=== PATIENT | male | born 1955 | race Caucasian/White ===

== ENCOUNTER 2017-09-25 09:53 | Day surgery (SDC) | payer BC ==
[2017-09-25] MEDS ORDERED: PROPOFOL 10 MG/ML VIAL IV ONE (09:54)
[2017-09-25] MEDS ORDERED: LIDOCAINE 2% MDV (20MG/ML) 20ML VIAL IV ONE (09:54)
--- NOTE | 2017-09-26 13:31 | Operative Note ---
DATE OF SURGERY: 09/25/2017 OPERATION: COLONOSCOPY. PREOPERATIVE DIAGNOSIS: Screening, average risk. POSTOPERATIVE DIAGNOSES: 1. Fair prep. 2. Sigmoid diverticulosis. PROCEDURE: After informed consent was obtained from the patient, he was placed in the left lateral decubitus position in the endoscopy suite, sedated and monitored by the department of anesthesia. Digital rectal exam was unremarkable. A well-lubricated [id number] colonoscope was inserted into the rectum and advanced to the cecum. Preparation quality was fair at best. The cecum was noted by the ileocecal valve and appendiceal orifice. There was stool that was adherent to the mucosa which would not rinse. No obstructing or large lesions were noted. The ascending colon also had a fair prep. No large lesions were seen in the transverse colon. Descending colon, sigmoid colon, and rectum were also inspected demonstrating a [id number] prep at best. There were moderate diverticular changes in the sigmoid colon. No obstructing lesions or large polyps were seen. J-turn views of the anorectum were unremarkable. The endoscope was straightened, the rectal ampulla deflated, and the endoscope was removed. RECOMMENDATIONS: The patient should follow a high-fiber diet and resume his medications. Based on the preparation quality, I would recommend a repeat exam in 1 year with a 2-day prep. As always, thank you for allowing me to participate in the healthcare of your patients. CC: Cherri Roblero MD [facility]
== END 2017-09-25 12:15 | disposition home or self-care (01) ==
LOC: HOP 09:53
PROVIDERS: ATTEND Internal Medicine Gastroenterology
DX: Z12.11 Encounter for screening for malignant neoplasm of colon (principal); K57.90 Diverticulosis of intestine, part unspecified, without perforation or abscess without bleeding; I10 Essential (primary) hypertension; G89.29 Other chronic pain
CPT/HCPCS: 00812; G0121

== ENCOUNTER 2018-01-26 12:52 | Emergency (ER) | payer BC ==
[2018-01-26] MEDS: CEPHALEXIN 500 MG CAPSULE PO STA (13:38)
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
[2018-01-26] MEDS: SILVER SULFADIAZINE 25 GM CREAM TOP ONE (14:40)
== END 2018-01-26 14:38 | disposition home or self-care (01) ==
LOC: ER 12:52
DX: T23.231A Burn of second degree of multiple right fingers (nail), not including thumb, initial encounter (principal); X17.XXXA Contact with hot engines, machinery and tools, initial encounter; Y93.9 Activity, unspecified; Y92.9 Unspecified place or not applicable; Y99.9 Unspecified external cause status
CPT/HCPCS: 99283